=== PATIENT | female | born 1985 | race African-American/Black ===

== ENCOUNTER 2017-01-24 18:51 | Emergency (ER) | payer MEDICAID, OTHER ==
[~2017-01-24] VITALS: Ht 167.6 cm; Wt 54.0 kg
[2017-01-24 19:26] VITALS: BP 112/67
[2017-01-24] MEDS ORDERED: BACITRACIN ZINC OINT UDPKT TOP ONE (20:00)
[2017-01-24] MEDS ORDERED: LIDOCAINE HCL 1% 20ML VIAL (Pyxis) INJ INFIL ONE ×2 (20:00→22:00)
== END 2017-01-24 22:24 | disposition home or self-care (01) ==
LOC: ER 20:46
DX: S61.411A Laceration without foreign body of right hand, initial encounter (principal); I10 Essential (primary) hypertension; F17.200 Nicotine dependence, unspecified, uncomplicated; F12.10 Cannabis abuse, uncomplicated; X58.XXXA Exposure to other specified factors, initial encounter; Y93.89 Activity, other specified; Y99.8 Other external cause status; Y92.89 Other specified places as the place of occurrence of the external cause
CPT/HCPCS: 12001; 73130; 81025; 99284; J3490

== ENCOUNTER 2017-04-17 22:13 | Emergency (ER) | payer MEDICAID, OTHER ==
[~2017-04-17] VITALS: Ht 167.6 cm; Wt 55.4 kg
[2017-04-18] MEDS ORDERED: IBUPROFEN 600MG TABLET PO ONE (01:00)
[2017-04-18 01:51] VITALS: BP 119/74
== END 2017-04-18 03:05 | disposition home or self-care (01) ==
LOC: ER 22:13
DX: S82.101A Unspecified fracture of upper end of right tibia, initial encounter for closed fracture (principal); F17.200 Nicotine dependence, unspecified, uncomplicated; F12.10 Cannabis abuse, uncomplicated; Y08.89XA Assault by other specified means, initial encounter; Y93.89 Activity, other specified; Y92.89 Other specified places as the place of occurrence of the external cause; Y99.8 Other external cause status
CPT/HCPCS: 29505; 73590; 99284; Z7610

== ENCOUNTER 2017-08-03 22:55 | Emergency (ER) | payer OTHER | END 2017-08-04 00:38 | disposition left against medical advice (07) | LOC: ER 22:56 | DX: Z53.21 Procedure and treatment not carried out due to patient leaving prior to being seen by health care provider (principal) ==

== ENCOUNTER 2017-08-04 01:38 | Emergency (ER) | payer OTHER ==
[~2017-08-04] VITALS: Ht 167.6 cm; Wt 48.0 kg
[2017-08-04] MEDS ORDERED: ACETAMINOPHEN 500MG TABLET PO ONE (06:15)
[2017-08-04] MEDS ORDERED: IBUPROFEN 400MG TABLET PO ONE (06:15)
[2017-08-04] MEDS ORDERED: LIDOCAINE HCL 1% 20ML VIAL (Pyxis) INJ MC ONE (07:30)
[2017-08-04] MEDS ORDERED: BACITRACIN ZINC OINT UDPKT TOP ONE (07:45)
[2017-08-04 09:10] VITALS: BP 130/70
== END 2017-08-04 10:36 | disposition home or self-care (01) ==
LOC: ER 01:38
DX: S61.216A Laceration without foreign body of right little finger without damage to nail, initial encounter (principal); F17.200 Nicotine dependence, unspecified, uncomplicated; F12.10 Cannabis abuse, uncomplicated; W26.0XXA Contact with knife, initial encounter; Y93.89 Activity, other specified; Y92.090 Kitchen in other non-institutional residence as the place of occurrence of the external cause; Y99.8 Other external cause status
CPT/HCPCS: 12001; 99283; J3490; Z7610; 12032